=== PATIENT | male | born 1995 | race Hispanic/Latino ===

== ENCOUNTER 2024-06-11 12:42 | Emergency (ER) | payer SELFPAY ==
[~2024-06-11] VITALS: Ht 165.1 cm; Wt 63.0 kg
[2024-06-11 14:00] VITALS: BP 129/81
[2024-06-11 14:15] VITALS: BP 122/72
[2024-06-11 14:20] LABS: BASO% 0.7 % (0-3); EOS% 1.6 % (0-8); HEMATOCRIT 46.4 % (39.0-50.0); HEMOGLOBIN 16.1 g/dl (14.0-18.0); IMMATURE GRANULOCYTES 0.2 % (0.0-5.0); LYMPH% 35.3 % (15-41); MEAN CELL VOLUME 89.1 fL CALC (80.0-100.0); MEAN CORPUSCULAR HGB 30.9 pG CALC (26.0-32.0); MEAN CORPUSCULAR HGB CONC 34.7 g/dL CAL (32.0-36.0); MONO% 5.9 % (2-13); NEUT# 3.23 thou/uL (1.82-7.42); NEUT% 56.3 % (42-76); RED BLOOD COUNT 5.21 mill/uL (4.70-6.10)
[2024-06-11 14:30] VITALS: BP 110/65
[2024-06-11 14:33] LABS: ALBUMIN 4.9 g/dL (3.2-5.0); ALKALINE PHOSPHATASE 96 u/l (38-126); ANION GAP 13 (6-22 (CALC)); BILIRUBIN, TOTAL 1.1 mg/dL (0.2-1.3); BUN 12 mg/dL (9-20); BUN/CREATININE RATIO 14 (12-20 (CALC)); CARBON DIOXIDE 30 mmol/l (22-30); CHLORIDE 101 mmol/l (95-108); CREATININE 0.9 mg/dL (0.7-1.3); ESTIMATED GFR 119 ML/MIN (>=90 (CALC)); POTASSIUM 3.7 mmol/l (3.5-5.1); SGOT/AST 38 u/l (17-59); SODIUM 141 mmol/l (137-146); TOTAL PROTEIN 8.7 g/dL (6.3-8.2)
[2024-06-11 14:45] VITALS: BP 113/70
[2024-06-11 15:01] VITALS: BP 126/72
[2024-06-11 15:04] LABS: TSH, 3RD GENERATION 2.41 uIU/mL (0.47 - 4.68)
[2024-06-11] MEDS ORDERED: NAPROXEN500 MG PO (15:24)
[2024-06-11 15:30] VITALS: BP 126/72
== END 2024-06-11 15:37 | disposition home or self-care (01) | DRG 313 ==
LOC: ED 12:42
PROVIDERS: Family Medicine
DX: R07.9 Chest pain, unspecified (principal); Z20.822 Contact with and (suspected) exposure to COVID-19